=== PATIENT | male | born 1950 | race Caucasian/White ===

== ENCOUNTER 2021-07-15 07:41 | Emergency (ER) | payer MEDICARE, OTHER ==
[~2021-07-15] VITALS: Ht 172.7 cm; Wt 81.7 kg
[2021-07-15 07:48] VITALS: BP 152/93
--- NOTE | 2021-07-15 08:15 | PHYS DOC ---
Past History Past Surgical History: Cholecystectomy, Other Additional Past Surgical Histo: brain surgery for malignant neoplasm Alcohol Use: Occasionally General Adult EDM: Chief Complaint: MECHANICAL FALL HPI: HPI: Patient is a 71-year-old male brought in by EMS from nursing facility after a fall. Patient was standing at the sink when his left leg gave out and he fell causing pain on his right knee. Has been ambulatory since per EMS. Patient has a history of foot drop and normally wears a left leg brace and uses a walker to ambulate. No other complaints. Denies any blood thinner use. Review of Systems: Review of Systems: All other systems within normal limits except for as noted in the HPI Allergies: Allergies: Allergies Coded Allergies Type Severity Reaction Last Updated Verified naproxen Allergy Unknown Nausea 07/15/21 Yes Physical Exam: PE: Constitutional: Well developed, well nourished, no acute distress, non-toxic appearance. [] HENT: Normocephalic, atraumatic, bilateral external ears normal, nose normal. [] Eyes: PERRLA, conjunctiva normal, no discharge. [] Neck: No rigidity, supple, no stridor. [] Cardiovascular: Regular rate and rhythm, brisk cap refill [] Lungs & Thorax: Non labored symmetric respirations, no tachypnea or respiratory distress [] Abdomen: Soft, nondistended. Skin: Warm, dry, no erythema, no rash. [] Back: Unremarkable Extremities: No deformities, range of motion grossly intact, no lower extremity edema. Tenderness of upper anterior knee, no joint effusion. Range of motion intact without difficulty [] Neurologic: Alert and oriented X 3, no focal deficits noted. [] Psychologic: Affect normal, judgement normal, mood normal. [] Current Patient Data: Vital Signs: Vital Signs Date Time Temp Pulse Resp B/P (MAP) Pulse Ox O2 Delivery O2 Flow Rate FiO2 07/15/21 07:48 98.7 85 18 152/93 93 Room Air EKG: EKG: [] Radiology/Procedures: Radiology/Procedures: [address] [address] IMAGING REPORT Signed PATIENT: YAMILETH DONALDSON ACCOUNT: [id number] : 1950 LOCATION: ER AGE: 71 SEX: M EXAM STATUS: PRE ER ORD. PHYSICIAN: SEBASTIAN HORN MD REASON: fall PROCEDURE: KNEE RIGHT 3V XR KNEE 3 VIEWS_RT DATE: 07/15/2021 8:28 AM INDICATION: fall, pain COMPARISON: None. FINDINGS: Bones: There is no evidence of acute fracture or dislocation. Joints: The joint spaces are normal. There is no joint effusion. Miscellaneous: None. IMPRESSION: No evidence of acute fracture. Electronically signed by: Jade Campbell MD (07/15/2021 8:46 AM) [id number] DICTATED AND SIGNED BY: JADE CAMPBELL MD DATE: 07/15/21 0845 CC: SEBASTIAN HORN MD; PCP,NO ~MTH0 0 [] Heart Score: C/O Chest Pain: No Risk Factors: Risk Factors: DM, Current or recent (<one month) smoker, HTN, HLP, family history of CAD, obesity. Risk Scores: Score 0 - 3: 2.5% MACE over next 6 weeks - Discharge Home Score 4 - 6: 20.3% MACE over next 6 weeks - Admit for Clinical Observation Score 7 - 10: 72.7% MACE over next 6 weeks - Early Invasive Strategies Course & Med Decision Making: Course & Med Decision Making Pertinent Labs and Imaging studies reviewed. (See chart for details) [] Dragon Disclaimer: Dragon Disclaimer: This electronic medical record was generated, in whole or in part, using a voice recognition dictation system. Departure Departure: Impression: Primary Impression: Fall Additional Impression: Contusion of knee, right Disposition: 01 HOME / SELF CARE / HOMELESS Condition: STABLE Referrals: PCP,NO (PCP) Patient Instructions: Knee Wraps (Elastic Bandage) and RICE SEBASTIAN HORN MD Jul 15, 2021 08:14
--- NOTE | 2021-07-15 08:48 | RAD ---
XR KNEE 3 VIEWS_RT DATE: 07/15/2021 8:28 AM INDICATION: fall, pain COMPARISON: None. FINDINGS: Bones: There is no evidence of acute fracture or dislocation. Joints: The joint spaces are normal. There is no joint effusion. Miscellaneous: None. IMPRESSION: No evidence of acute fracture. Electronically signed by: Ant Campbell MD (07/15/2021 8:46 AM) [id number]
--- NOTE | 2021-07-15 12:48 | NUR ---
TWO ATTEMPS WERE MADE TO CONTACT PATIENTS RESIDENCE. BOTH TIMES THE PHONE RANG AND WAS NEVER ANSWERED. I CALLED EMS TO TRANSPORT PATIENT HOME.
== END 2021-07-15 09:32 | disposition home or self-care (01) ==
LOC: EDBD 07:41 → ER 07:41
DX: S80.01XA Contusion of right knee, initial encounter (principal); Z88.8 Allergy status to other drugs, medicaments and biological substances; W18.39XA Other fall on same level, initial encounter; Y93.89 Activity, other specified; Y92.89 Other specified places as the place of occurrence of the external cause; Y99.8 Other external cause status
CPT/HCPCS: 29505; 73562; 99284

== ENCOUNTER 2021-07-24 20:56 | Emergency (ER) | payer MEDICARE, OTHER ==
[~2021-07-24] VITALS: Ht 172.7 cm; Wt 83.2 kg
[2021-07-24] MEDS: IOHEXOL 350 MG/ML 100 ML VIAL. IV ONE (21:15)
[2021-07-24 21:19] LABS: BASO # 0.1 x10^3/uL (0.0-0.2); BASO % 1 % (0-3); EOS # 0.1 x10^3/uL (0.0-0.7); EOS % 1 % (0-3); HEMATOCRIT 45.1 % (39.0-53.0); HEMOGLOBIN 14.9 g/dL (13.0-17.5); LYMPH # 1.2 x10^3/uL (1.0-4.8); LYMPH % 10 % (24-48); MEAN CORPUSCULAR HEMOGLOBIN 31 pg (25-35); MEAN CORPUSCULAR HGB CONC 33 g/dL (31-37); MEAN CORPUSCULAR VOLUME 93 fL (79-100); MONO # 0.8 x10^3/uL (0.0-1.1); MONO % 7 % (0-9); NEUT # 9.4 x10^3uL (1.8-7.7); NEUT % 81 % (31-73); PLATELET COUNT 228 x10^3/uL (140-400); RED BLOOD COUNT 4.82 x10^6/uL (4.30-5.70); RED CELL DISTRIBUTION WIDTH 13.7 % (11.5-14.5); WHITE BLOOD COUNT 11.6 x10^3/uL (4.0-11.0)
--- NOTE | 2021-07-24 21:19 | RAD ---
CT HEAD INDICATION: Reason: Weakness, lethargic, change in mental status HX:Brain tumor w/norberto / Spl. Instruct ions: / History: COMPARISON: None Available. Exposure: One or more of the following individualized dose reduction techniques were utilized for thi s examination: 1. Automated exposure control 2. Adjustment of the mA and/or kV according to patient size 3. Use of iterative reconstruction technique TECHNIQUE: 5 mm contiguous axial images were obtained from the skull base to the vertex in both bone and soft tissue algorithm. FINDINGS: There is mass effect with moderate edema in the right frontal lobe with 8 mm [id number] midline sh ift there is effacement of the anterior portion of the right lateral ventricle with some mass effect on the third ventricle. The fourth ventricle is patent. Changes of right craniotomy identified. There is a 2.4 x 1.9 cm hypodensity could be cystic mass or resection cavity in the right frontal lobe. Th ere is suspicion of tiny subdural bleed possibly subacute in the subdural region right frontal lobe, best visualized on series 2 image 21. IMPRESSION: 2.4 cm hypodensity could be cystic mass or resection cavity in the right frontal lobe. There is mass effect with edema in the right frontal lobe with 8 mm khmw-jx-[id number] midline shift. There is effacemen t of the anterior portion of the right lateral ventricle with some mass effect on the third ventricle . There is suspicion of tiny subdural bleed possibly subacute in the subdural region right frontal lo be (difficult to evaluate without comparison). FOR INTERNAL CODING PURPOSES Critical result: Findings discussed with ER physician at 07/24/2021 9:10 PM. RESULT CODE: (C) Electronically signed by: Narendra Mancilla MD (07/24/2021 9:17 PM) [id number]
[2021-07-24 21:27] LABS: CALCIUM 9.2 mg/dL (8.5-10.1); CREATININE 0.8 mg/dL (0.7-1.3); GFR 95.6; POTASSIUM 4.1 mmol/L (3.5-5.1)
--- NOTE | 2021-07-24 21:28 | PHYS DOC ---
Past History Past Surgical History: Cholecystectomy, Other Additional Past Surgical Histo: brain surgery for malignant neoplasm (AUGUSTIN CLOUD DO) Alcohol Use: Occasionally (AUGUSTIN CLOUD DO) General Adult EDM: Chief Complaint: NEURO SYMPTOMS/DEFICITS HPI: HPI: 71-year-old male presents via EMS as a code stroke. The patient is unresponsive and unable to provide any history. The entire HPI is from EMS and care facility reports. The patient was at a local care facility for rehab after treatment of a brain tumor. He was reported to be at baseline which is talking and able to stand and pivot. He can move all 4 extremities. He is normally alert and oriented. He was last known well at 8 PM. When the DIGITAL WATCH ASSEMBLER went into check on the patient around 815 the patient was unresponsive. He was able to nod his head for yes and no for EMS. He was able to say a few words but had total left side loss of function. During transport, the patient became less responsive and was unable to answer any questions or communicate in any way. His vitals were stable. He is moving his right hand and foot but nothing on the left side. (AUGUSTIN CLOUD DO) Review of Systems: Review of Systems: Unable to assess due to patient being unresponsive. (AUGUSTIN CLOUD DO) Current Medications: Current Meds: Current Medications Medications (Trade) Dose Ordered Sig/Kristen Start Time Stop Time Status Last Admin Dose Admin Iohexol (Omnipaque 350 Mg/ml) 100 ml 1X ONCE 07/24/21 21:15 07/24/21 21:16 (AUGUSTIN CLOUD DO) Allergies: Allergies: Allergies Coded Allergies Type Severity Reaction Last Updated Verified naproxen Allergy Unknown Nausea 07/15/21 Yes (AUGUSTIN CLOUD DO) Physical Exam: PE: Constitutional: Well developed, well nourished, severe acute distress. [] HENT: Normocephalic, atraumatic, bilateral external ears normal, oropharynx dry, no oral exudates, nose normal. [] Eyes: 2 mm pupils bilaterally, eye deviation to the right. [] Neck: No obvious signs of trauma [] Cardiovascular: Heart rate regular rhythm, no murmur [] Lungs & Thorax: Bilateral breath sounds clear to auscultation [] Abdomen: soft, no tenderness, no masses, no pulsatile masses. [] Skin: Warm, dry, no erythema, no rash. [] Back: No signs of trauma [] Extremities: No cyanosis, no clubbing. Moving right hand and right foot. [] Neurologic: Responsive to pain, no movement of left upper and lower extremity. See NIH stroke scale. [] Psychologic: Unable to assess [] (AUGUSTIN CLOUD DO) Current Patient Data: Vital Signs: Vital Signs Date Time Temp Pulse Resp B/P (MAP) Pulse Ox O2 Delivery O2 Flow Rate FiO2 07/24/21 21:08 98.5 80 12 125/75 (92) 95 Room Air (AUGUSTIN CLOUD DO) EKG: EKG: [] (AUGUSTIN CLOUD DO) Radiology/Procedures: Radiology/Procedures: [] Impressions: CT HEAD INDICATION: Reason: Weakness, lethargic, change in mental status HX:Brain tumor w/norberto / Spl. Instructions: / History: COMPARISON: None Available. Exposure: One or more of the following individualized dose reduction techniques were utilized for this examination: 1. Automated exposure control 2. Adjustment of the mA and/or kV according to patient size 3. Use of iterative reconstruction technique TECHNIQUE: 5 mm contiguous axial images were obtained from the skull base to the vertex in both bone and soft tissue algorithm. FINDINGS: There is mass effect with moderate edema in the right frontal lobe with 8 mm uevs-oi-wvent midline shift there is effacement of the anterior portion of the right lateral ventricle with some mass effect on the third ventricle. The fourth ventricle is patent. Changes of right craniotomy identified. There is a 2.4 x 1.9 cm hypodensity could be cystic mass or resection cavity in the right frontal lobe. There is suspicion of tiny subdural bleed possibly subacute in the subdural region right frontal lobe, best visualized on series 2 image 21. IMPRESSION: 2.4 cm hypodensity could be cystic mass or resection cavity in the right frontal lobe. There is mass effect with edema in the right frontal lobe with 8 mm srcz-cn-ftdby midline shift. There is effacement of the anterior portion of the right lateral ventricle with some mass effect on the third ventricle. There is suspicion of tiny subdural bleed possibly subacute in the subdural region right frontal lobe (difficult to evaluate without comparison). FOR INTERNAL CODING PURPOSES Critical result: Findings discussed with ER physician at 07/24/2021 9:10 PM. RESULT CODE: (C) Electronically signed by: Narendra Mancilla MD (07/24/2021 9:17 PM) [id number] DICTATED AND SIGNED BY: NARENDRA MANCILLA MD DATE: 07/24/212106 CC: AUGUSTIN CLOUD DO; MEL MACK ~MTH0 0 (AUGUSTIN CLOUD DO) Heart Score: C/O Chest Pain: N/A Risk Factors: Risk Factors: DM, Current or recent (<one month) smoker, HTN, HLP, family history of CAD, obesity. Risk Scores: Score 0 - 3: 2.5% MACE over next 6 weeks - Discharge Home Score 4 - 6: 20.3% MACE over next 6 weeks - Admit for Clinical Observation Score 7 - 10: 72.7% MACE over next 6 weeks - Early Invasive Strategies (AUGUSTIN CLOUD DO) Course & Med Decision Making: Course & Med Decision Making Pertinent Labs and Imaging studies reviewed. (See chart for details) The patient NIH scale is 26. His CT scan shows mass-effect with 8 mm of shift. He also has a small subdural hematoma. The patient's DPOA called the hospital and would like the patient transferred to [facility]. There is nothing further that we can do for him here so we will attempt to expedite his transfer. His vital signs are stable at this time. There were 12 hospitals in [place] on diversion at this time. I spoke with the neurosurgery group associated with the patient at [facility]. Dr. Hough. He believes it is likely that the patient is having a seizure or seizure-like activity. He is advised 1 g of Keppra and 10 mg of Decadron followed by observation for the night. He will work first thing in the morning on getting the patient transferred to a facility where he has privileges. We will inform the family of the situation. [] (AUGUSTIN CLOUD DO) Course & Med Decision Making I received this patient at [address] Cloud. On reassessment the patient remains alert, oriented, with normal speech, moving all extremities. This spoke with neurosurgeon, Dr. Johnston, who reviewed his CT images and is concerned for increasing edema. Dr. Johnston requested the patient be transferred to the [facility] emergency department for an ED to ED transfer. Unfortunately there is no space for direct admit. He states that he spoke with the ED doctors to make them aware. Arranging transport at this time. 0942 (PAN SANTANA MD) Papito Disclaimer: Dragon Disclaimer: This electronic medical record was generated, in whole or in part, using a voice recognition dictation system. (AUGUSTIN CLOUD DO) Departure Departure: Impression: Primary Impression: Brain tumor Additional Impression: Neoplasm of brain causing mass effect on adjacent structures Disposition: 02 SHORT TERM HOSPITAL Condition: GUARDED Referrals: MEL MACK (PCP) NIH Stroke Scale: NIH Stroke Scale Response (Comments) Value Level of Consciousness: 2 Requires stimulation 2 LOC Questions: 2 Answers neither correct 2 LOC Commands: 2 Perform neither task 2 Best Gaze: 1 Partial gaze palsy 1 Visual: 0 No visual loss 0 Facial Palsy: 1 Minor paralysis 1 Motor - Left Arm 4 No movement 4 Motor - Right Arm 2 Some effort 2 Motor - Left Leg 4 No movement 4 Motor: Right Leg 2 Some effort 2 Limb Ataxia: 1 One limb 1 Sensory: 1 Mid to moderate loss 1 Best Language: 2 Severe aphasia 2 Dysathria: 0 Normal 0 Extinction and Inattention: 2 Extinction 2 Total 26 AUGUSTIN CLOUD DO Jul 24, 2021 21:28 PAN SANTANA MD Jul 25, 2021 09:42
[2021-07-24 21:33] LABS: ALBUMIN 3.4 g/dL (3.4-5.0); ALBUMIN/GLOBULIN RATIO 0.9 (1.0-1.7); TOTAL BILIRUBIN 0.6 mg/dL (0.2-1.0); TOTAL PROTEIN 7.2 g/dL (6.4-8.2)
[2021-07-24 21:35] LABS: BACTERIA,URINE 0 /HPF (0-FEW); BILIRUBIN,URINE NEG (NEG); CLARITY,URINE CLEAR; COLOR,URINE YELLOW; GLUCOSE,URINE NEG (NEG); NITRITE,URINE NEG (NEG); RBC,URINE 0 /HPF (0-2); SQUAMOUS EPITHELIAL CELL,UR OCC /LPF; UROBILINOGEN,URINE 0.2 mg/dL (0.2 mg/dL)
[2021-07-24] MEDS ORDERED: IV NORMAL SALINE 100ML 100 ML ONE (22:35)
[2021-07-24] MEDS ORDERED: levETIRAcetam 500 MG/5 ML VIAL IV ONE (22:36)
[2021-07-24] MEDS: DEXAMETHASONE SOD PHOS 10 MG/ML VIAL. IVP ONE (22:43)
--- NOTE | 2021-07-25 00:02 | EKG ---
[facility] [address] [place] [address] Test Date: 2021-07-24 Test Time: 21:14:36 Pat Name: YAMILETH DONALDSON Department: Room: Gender: M Data Typist: VIVIAN : 1950 Requested By: AUGUSTIN CLOUD Order Number: [id number] Reading MD: Measurements Intervals Hoagland Rate: 82 P: 57 DC: 172 QRS: 16 QRSD: 80 T: 28 QT: 440 QTc: 518 Interpretive Statements SINUS RHYTHM PROLONGED QT NO SPECIFIC ECG ABNORMALITIES RI6.02 No previous ECG available for comparison
[2021-07-25] MEDS: ACETAMINOPHEN 325 MG TABLET PO ONE (07:34)
[2021-07-25 09:30] VITALS: BP 147/83
== END 2021-07-25 10:50 | disposition short-term general hospital (02) ==
LOC: ER 20:56
DX: D49.6 Neoplasm of unspecified behavior of brain (principal); Z88.8 Allergy status to other drugs, medicaments and biological substances
CPT/HCPCS: 36415; 70450; 80053; 81001; 82947; 84484; 85025; 85610; 85730; 87086; 93005; 96365; 96375; 99285; J1100; J1953; P9612

== ENCOUNTER 2021-09-06 10:55 | Inpatient (IN) | payer MEDICARE, OTHER ==
[~2021-09-06] VITALS: Ht 175.3 cm; Wt 77.7 kg
--- NOTE | 2021-09-06 11:10 | PHYS DOC ---
Past History Additional Past Medical Histor: Brain tumor (JILL GIBSON APRN) Past Surgical History: Cholecystectomy, Other Additional Past Surgical Histo: brain surgery for malignant neoplasm (JILL GIBSON APRN) Alcohol Use: Occasionally (JILL GIBSON APRN) General Adult EDM: Chief Complaint: WEAKNESS/GENERALIZED HPI: HPI: Patient is a 8-year-old male who presents to the emergency department from a fpc via EMS for reported shortness of breath, generalized weakness, fatigue and diminished lung sounds per the nursing staff. Patient has no current complaints. He denies shortness of breath, chest pain, nausea, vomiting, diarrhea, abdominal pain, urinary complaints. Patient has a history of brain cancer, diabetes type 2, seizures, hypertension, GERD. He is alert and oriented x4. He does not wear oxygen at the fpc but is 90% on room air. (JILL GIBSON APRN) Review of Systems: Review of Systems: Respiratory: See HPI Cardiovascular: See HPI GI: See HPI : See HPI Musculoskeletal: HPI Neurologic: See HPI (JILL GIBSON APRN) Current Medications: Current Meds: Current Medications Medications (Trade) Dose Ordered Sig/Kristen Start Time Stop Time Status Last Admin Dose Admin Sodium Chloride 1,000 ml @ 1,000 mls/hr 1X ONCE 09/06/21 11:15 09/06/21 12:14 UNV (JILL GIBSON APRN) Allergies: Allergies: Allergies Coded Allergies Type Severity Reaction Last Updated Verified naproxen Allergy Unknown Nausea 07/15/21 Yes (JILL GIBSON APRN) Physical Exam: PE: Constitutional: Well developed, well nourished, no acute distress, non-toxic appearance. [] HENT: Normocephalic, atraumatic, bilateral external ears normal, oropharynx moist, no oral exudates, nose normal. [] Eyes: PERRL, EOMI, conjunctiva normal, no discharge. [] Neck: Normal range of motion, no stridor Cardiovascular:Heart rate tachycardic rhythm, no murmur [] Lungs & Thorax: Clear lung sounds to auscultation Abdomen: Bowel sounds normal, soft, no tenderness, no masses, no pulsatile masses. [] Skin: Warm, dry, no erythema, no rash. [] Back: no tenderness Extremities: No tenderness, no cyanosis, no clubbing, ROM intact, no edema. [] Neurologic: Alert and oriented X 3, normal motor function, normal sensory funct ion, no focal deficits noted. [] Psychologic: Affect normal, judgement normal, mood normal. [] (JILL GIBSON APRN) Current Patient Data: Labs: Laboratory Tests Test 09/06/21 10:58 09/06/21 11:18 White Blood Count 9.1 x10^3/uL Red Blood Count 4.54 x10^6/uL Hemoglobin 13.8 g/dL Hematocrit 40.7 % Mean Corpuscular Volume 90 fL Mean Corpuscular Hemoglobin 30 pg Mean Corpuscular Hemoglobin Concent 34 g/dL Red Cell Distribution Width 14.0 % Platelet Count 123 x10^3/uL Neutrophils (%) (Auto) 84 % Lymphocytes (%) (Auto) 9 % Monocytes (%) (Auto) 6 % Eosinophils (%) (Auto) 1 % Basophils (%) (Auto) 0 % Neutrophils # (Auto) 7.7 x10^3uL Lymphocytes # (Auto) 0.8 x10^3/uL Monocytes # (Auto) 0.5 x10^3/uL Eosinophils # (Auto) 0.1 x10^3/uL Basophils # (Auto) 0.0 x10^3/uL Sodium Level 133 mmol/L Potassium Level 3.4 mmol/L Chloride Level 100 mmol/L Carbon Dioxide Level 20 mmol/L Anion Gap 13 Blood Urea Nitrogen 27 mg/dL Creatinine 1.2 mg/dL Estimated GFR (Cockcroft-Gault) 59.9 BUN/Creatinine Ratio 23 Glucose Level 166 mg/dL Lactic Acid Level 1.9 mmol/L Calcium Level 8.6 mg/dL Total Bilirubin 1.2 mg/dL Aspartate Amino Transf (AST/SGOT) 15 U/L Alanine Aminotransferase (ALT/SGPT) 30 U/L Alkaline Phosphatase 74 U/L Total Protein 6.9 g/dL Albumin 2.6 g/dL Albumin/Globulin Ratio 0.6 Influenza Type A (Rapid) Negative Influenza Type B (Rapid) Negative SARS-CoV-2 Antigen (Rapid) Negative Current Medications Medications (Trade) Dose Ordered Sig/Kristen Route PRN Reason Start Time Stop Time Status Last Admin Dose Admin Sodium Chloride 1,000 ml @ 1,000 mls/hr 1X ONCE IV 09/06/21 11:15 09/06/21 12:14 DC 09/06/21 11:15 (JILL GIBSON APRN) EKG: EKG: [] EKG performed by ER staff at 1106 shows sinus tachycardia with a rate of 101, QTc 447, no STEMI read by Dr. Cloud at 1115 (JILL GIBSON APRN) Radiology/Procedures: Radiology/Procedures: []PROCEDURE: PORTABLE CHEST 1V EXAM: Chest, single view. HISTORY: Shortness of air. COMPARISON: None. FINDINGS: A frontal view of the chest is obtained. There is left infrahilar atelectasis or interstitial infiltrate. There is no consolidation, pleural effusion or pneumothorax. The cardiac silhouette is unremarkable. There are calcified granulomas. IMPRESSION: Left infrahilar atelectasis or interstitial infiltrate. Electronically signed by: Radha Ugarte MD (09/06/2021 11:20 AM) [id number] DICTATED AND SIGNED BY: RADHA UGARTE MD DATE: 09/06/211119 CC: JILL GIBSON APRN; NABIL THOMAS ~MTH0 0 (JILL GIBSON APRN) Heart Score: C/O Chest Pain: No Risk Factors: Risk Factors: DM, Current or recent (<one month) smoker, HTN, HLP, family history of CAD, obesity. Risk Scores: Score 0 - 3: 2.5% MACE over next 6 weeks - Discharge Home Score 4 - 6: 20.3% MACE over next 6 weeks - Admit for Clinical Observation Score 7 - 10: 72.7% MACE over next 6 weeks - Early Invasive Strategies (JILL GIBSON APRN) Course & Med Decision Making: Course & Med Decision Making Pertinent Labs and Imaging studies reviewed. (See chart for details) Patient presents to the emergency department for reported shortness of breath, weakness and fatigue according to the nursing staff. Work-up in the ER consisted of blood work, urinalysis, EKG, chest x-ray. Patient treated with IV fluids. Patient's chest x-ray shows left interstitial infiltrate versus left inter-Jacquelyn atelectasis. Patient is noted to have mild elevation in his BUN 27. Potassium 3.4 and this is replaced in the ER. Influenza and Covid testing was negative. Patient was not noted to have a leukocytosis. Urinalysis is pending at this time. Patient is requiring oxygen, he is wearing 2 L via nasal cannula with O2 saturation is 92%. Patient treated with antibiotics for his pneumonia and given potassium supplementation. Due to patient's pneumonia and new oxygen demand as well as weakness reported by [facility] staff I think it would be best with patient IV antibiotics to treat his pneumonia and oxygen therapy. I discussed patient's case with Dr. Watts who agreed to admit the patie nt under his services for pneumonia. Bridge orders placed. Care transferred. (JILL GIBSON APRN) Dragon Disclaimer: Dragon Disclaimer: This electronic medical record was generated, in whole or in part, using a voice recognition dictation system. (JILL GIBSON APRN) Attending Co-Sign The patient was seen and interviewed as well as examined at the bedside. The chart was reviewed. The case was discussed. Agree with the plan of care. (AUGUSTIN CLOUD DO) Departure Departure: Impression: Primary Impression: Pneumonia Qualified Codes: J18.9 - Pneumonia, unspecified organism Disposition: ADMITTED INPATIENT Admitting Physician: Tiffanie Watts (JILL GIBSON APRN) Condition: STABLE Referrals: NABIL THOMAS (PCP) JILL GIBSON APRN Sep 06, 2021 11:10 AUGUSTIN CLOUD DO Sep 06, 2021 17:34
[2021-09-06] MEDS ORDERED: IV NORMAL SALINE 1,000ML 1,000 ML IV ONE ×2 (11:15→13:30)
[2021-09-06 11:23] LABS: BASO % 0 % (0-3); EOS # 0.1 x10^3/uL (0.0-0.7); EOS % 1 % (0-3); HEMATOCRIT 40.7 % (39.0-53.0); HEMOGLOBIN 13.8 g/dL (13.0-17.5); LYMPH # 0.8 x10^3/uL (1.0-4.8); LYMPH % 9 % (24-48); MEAN CORPUSCULAR HEMOGLOBIN 30 pg (25-35); MEAN CORPUSCULAR HGB CONC 34 g/dL (31-37); MEAN CORPUSCULAR VOLUME 90 fL (79-100); MONO # 0.5 x10^3/uL (0.0-1.1); MONO % 6 % (0-9); NEUT # 7.7 x10^3uL (1.8-7.7); NEUT % 84 % (31-73); PLATELET COUNT 123 x10^3/uL (140-400); RED BLOOD COUNT 4.54 x10^6/uL (4.30-5.70); WHITE BLOOD COUNT 9.1 x10^3/uL (4.0-11.0)
--- NOTE | 2021-09-06 11:23 | RAD ---
EXAM: Chest, single view. HISTORY: Shortness of air. COMPARISON: None. FINDINGS: A frontal view of the chest is obtained. There is left infrahilar atelectasis or interstiti al infiltrate. There is no consolidation, pleural effusion or pneumothorax. The cardiac silhouette is unremarkable. There are calcified granulomas. IMPRESSION: Left infrahilar atelectasis or interstitial infiltrate. Electronically signed by: Radha Casillas MD (09/06/2021 11:20 AM) [id number]
[2021-09-06 11:35] LABS: CALCIUM 8.6 mg/dL (8.5-10.1); CREATININE 1.2 mg/dL (0.7-1.3); GFR 59.9; POTASSIUM 3.4 mmol/L (3.5-5.1)
[2021-09-06 11:41] LABS: ALBUMIN 2.6 g/dL (3.4-5.0); ALBUMIN/GLOBULIN RATIO 0.6 (1.0-1.7); TOTAL BILIRUBIN 1.2 mg/dL (0.2-1.0); TOTAL PROTEIN 6.9 g/dL (6.4-8.2)
[2021-09-06 12:12] LABS: INFLUENZA A PATIENT NEGATIVE (NEGATIVE); INFLUENZA B PATIENT NEGATIVE (NEGATIVE)
[2021-09-06] MEDS ORDERED: AZITHROMYCIN 500 MG in IV NORMAL SALINE 250ML 250 ML IV ONE (13:00)
[2021-09-06] MEDS ORDERED: POTASSIUM CHLORIDE 20 MEQ TABLET.ER. PO ONE (13:00)
[2021-09-06] MEDS ORDERED: IV NORMAL SALINE 50ML 50 ML ONE (13:07)
[2021-09-06] MEDS ORDERED: IV NORMAL SALINE 250ML 250 ML ONE (13:07)
[2021-09-06] MEDS ORDERED: cefTRIAXone SODIUM 1 GM VIAL ONE (13:08)
[2021-09-06] MEDS ORDERED: AZITHROMYCIN 500 MG VIAL. IV ONE (13:08)
[2021-09-06 14:16] LABS: BILIRUBIN,URINE NEG (NEG); CLARITY,URINE CLOUDY; COLOR,URINE YELLOW; GLUCOSE,URINE NEG (NEG); NITRITE,URINE NEG (NEG); UROBILINOGEN,URINE 0.2 mg/dL (0.2 mg/dL)
[2021-09-06 14:17] LABS: AMORPHOUS SEDIMENT,UR PRESENT /HPF; BACTERIA,URINE 0 /HPF (0-FEW); RBC,URINE RARE /HPF (0-2); SQUAMOUS EPITHELIAL CELL,UR OCC /LPF
[2021-09-06 15:12] VITALS: BP 94/56
[2021-09-06] MEDS ORDERED: DEXTROSE 50% 25 GM / 50ML DISP.SYRIN. IV PRN (16:30)
[2021-09-06] MEDS: INSULIN LISPRO 300 UNITS/3 ML VIAL. SQ SCH (17:00)
[2021-09-06] MEDS: POTASSIUM CL 40MEQ IN 0.9%NACL 1,000 ML IV SCH (17:11)
--- NOTE | 2021-09-06 18:30 | NUR ---
Nursing Admission note PT came into the floor from the ED by a miguel a with a diagnoses of Pneumonia. general assessments done, some redness around the coccyx area, unable to answer most of the admission questions. part of the history is in the file. Brother who is the power of collections attorney needs information on the any changes. PT able to eat some of the dinner. PT in bed, call light within reach.
--- NOTE | 2021-09-06 18:45 | HP ---
DATE OF SERVICE: 09/06/2021 ADMIT DATE: 09/06/2021 HISTORY OF PRESENT ILLNESS: The patient is a 71-year-old male patient, [place] [facility] [place] to the Emergency Room with generalized weakness as well as shortness of breath and fatigue, and diminishing lung sounds. Per the nursing staff, the patient has no current complaints. He himself denied any shortness of breath, chest pain, nausea or vomiting. He is not wearing any oxygen at the [facility], but he is only 90% on room air. The patient himself is not forthcoming with a lot of information and very slow to respond, although when he answers, he answers appropriately. He was extensively investigated in the Emergency Room and has had lab work showed a white cell count was normal. His chemistry was unremarkable and his chest x-ray showed that the patient has left infrahilar atelectasis or interstitial infiltrate. There is no consolidation, pleural effusion, or pneumothorax. The cardiac silhouette is unremarkable. There are calcified granulomas. The patient was admitted with diagnosis of healthcare-associated pneumonia, was admitted and started on IV antibiotic. He apparently was tested negative for COVID and influenza, and was treated with IV antibiotic and IV fluid afterwards obtaining the appropriate culture. PAST MEDICAL HISTORY: Significant for type 2 diabetes mellitus; major depressive disorder, recurrent; unspecified anxiety disorder; epileptic seizures related to external causes. He has hereditary and idiopathic neuropathy, essential primary hypertension, previous history of pneumonia, gastroesophageal reflux disease, has malignant neoplasm of the frontal lobe. He also has spinal stenosis, low back pain, muscle weakness, rhabdomyolysis, tachycardia, unspecified tachypnea. He also has difficulty walking and cognitive communication disorder. PAST SURGICAL HISTORY: Significant for right frontal lobe tumor resection. I could not get further, any more information from the patient. ALLERGIES: He is allergic to NAPROXEN. MEDICATIONS: He is currently on the following medication: He is on acetaminophen 650 mg every 6 hours, baclofen 10 mg one time a day, Cardizem tablet 120 mg once a day, gabapentin 600 mg twice a day. He is on Imodium 2 mg by mouth every 6 hours. He is on Lantus insulin as per insulin sliding scale. He is on Lantus insulin 12 units at bedtime. He is also on levetiracetam 1000 mg twice a day, Lexapro 10 mg once a day, lisinopril 20 mg once a day, melatonin 0.5 mg at bedtime, metformin 500 mg one tablet twice a day, Norvasc 5 mg once a day, omeprazole 20 mg once a day, Topamax 50 mg twice a day, trazodone 50 mg at bedtime, Zetia 10 mg once a day. He is also on Zofran 8 mg one tablet every 4 hours as needed. FAMILY HISTORY: Unobtainable. SOCIAL HISTORY: [place] [facility] [place] denied any smoking, drinking alcohol and recreational drugs. REVIEW OF SYSTEMS: As per history of present illness. PHYSICAL EXAMINATION: GENERAL: On arrival to the Emergency Room, he looked well and was clearly in no apparent respiratory distress. There is no pallor, jaundice, cyanosis or thyromegaly. No jugular venous distention. No lower limb edema. VITAL SIGNS: His heart rate was 96, blood pressure is 107/61, temperature was 99.2, respiratory rate was 18 and oxygen saturation was 93% on 2 liters of oxygen. HEAD, EYES, EARS, NOSE, AND THROAT: Normocephalic, atraumatic. NECK: Supple. HEART: Showed normal first and second heart sounds, no gallop or murmur. CHEST: Shows central trachea, equal bilateral expansion, air entry, vesicular breath sounds. No crepitation or rhonchi except on the left side posteriorly. ABDOMEN: Distended, soft, nontender. NEUROLOGIC: He is awake, alert, responding appropriately. All his cranial nerves are intact. He moves upper extremities to much good extent than lower extremities; however, I have not tested his gait. According to him, he is able to ambulate; however, according to the [facility] notes that he requires assistance in all activities of daily living. LABORATORY DATA: On arrival showed a white cell count of 9100, hemoglobin 14, hematocrit 41, MCV 90 and platelet count of 123,000 with a manual differential showed 84% polymorphs, 9% lymphocytes and 5% monocytes. His chemistry showed a serum sodium 133, potassium 3.4, chloride 100, bicarbonate 20, anion gap of 13, BUN 27, creatinine 1.2. Estimated GFR was 59 mL per minute. His glucose 166, lactic acid is 1.9, calcium was 8.6. Total bilirubin, AST, ALT, alkaline phosphatase were normal. Troponin was high sensitivity, was 20. Total protein 6.9, albumin was 2.5. His urinalysis was essentially unremarkable and his coronavirus rapid testing was negative. Influenza A and B were negative. Again, his chest x-ray showed the patient has left infrahilar atelectasis or interstitial infiltrate. ASSESSMENT AND PLAN: The patient was admitted with healthcare-associated pneumonia. Plan is to reconcile all his medication, continue with IV ceftriaxone and Zithromax and I will continue with IV fluid in the form of normal saline with potassium chloride and continue with oxygen supplementation and DVT prophylaxis. I would also consult Physical and Occupational Therapy to evaluate him. We will monitor his blood sugar and adjust insulin as needed. BHAVANA/SHWETHA DR: Sade TID: [id number]
[2021-09-06 19:45] VITALS: BP 136/66
[2021-09-06] MEDS: INSULIN GLARGINE SYRINGE. SQ SCH (22:09)
[2021-09-07 00:22] VITALS: BP 126/68
[2021-09-07] MEDS ORDERED: LOPERAMIDE 2 MG/15 ML ORAL SUSP. PO PRN (03:15)
--- NOTE | 2021-09-07 03:58 | EKG ---
[address] [address] Test Date: 2021-09-06 Test Time: 13:42:26 Pat Name: YAMILETH DONALDSON Department: Room: 111 A Gender: M Fruit Packer: TRENA : 1950 Requested By: JILL GIBSON Order Number: [id number] Reading MD: Maged Altman Measurements Intervals [place] Rate: 77 P: 0 DE: 158 QRS: 8 QRSD: 84 T: -17 QT: 380 QTc: 432 Interpretive Statements SINUS RHYTHM T ABNORMALITY IN INFERIOR LEADS Electronically Signed On 09-08-2021 13:30:28 CDT by Maged Altman
[2021-09-07] MEDS ORDERED: LEVE500T21 PO (04:07)
[2021-09-07] MEDS ORDERED: TOPI50TA38 PO (04:07)
[2021-09-07] MEDS ORDERED: LISI20TA18 PO (04:07)
[2021-09-07] MEDS ORDERED: MELA1TAB44 PO (04:07)
[2021-09-07] MEDS ORDERED: LOPE1LIQ7 PO (04:07)
[2021-09-07] MEDS ORDERED: OMEP20CA16 PO (04:07)
[2021-09-07] MEDS ORDERED: BACL10TA PO (04:07)
[2021-09-07] MEDS ORDERED: TRAZ-120 PO (04:07)
[2021-09-07] MEDS ORDERED: GABA-586 PO (04:07)
[2021-09-07] MEDS ORDERED: AMLO5TAB4 PO (04:07)
[2021-09-07] MEDS ORDERED: ONDA4TAB7 PO (04:07)
[2021-09-07] MEDS ORDERED: ESCITALOPRAM OX10 MG PO (04:07)
[2021-09-07] MEDS ORDERED: METF500T16 PO (04:07)
[2021-09-07] MEDS ORDERED: EZET10TA20 PO (04:07)
[2021-09-07] MEDS ORDERED: DILT60TA3 PO (04:07)
[2021-09-07] MEDS ORDERED: ACET325T21 PO (04:07)
[2021-09-07] MEDS ORDERED: ONDANSETRON ODT 4 MG TAB.RAPDIS PO PRN ×2 (04:30→04:45)
[2021-09-07 06:17] VITALS: BP 125/76
[2021-09-07] MEDS: ACETAMINOPHEN 325 MG TABLET PO PRN ×2 (06:27→19:18)
[2021-09-07] MEDS: POTASSIUM CL 40MEQ IN 0.9%NACL 1,000 ML IV SCH ×2 (06:28→20:28)
[2021-09-07 07:21] LABS: ALBUMIN 2.4 g/dL (3.4-5.0); ALBUMIN/GLOBULIN RATIO 0.6 (1.0-1.7); CALCIUM 8.2 mg/dL (8.5-10.1); CREATININE 0.7 mg/dL (0.7-1.3); GFR 111.5; TOTAL BILIRUBIN 1.1 mg/dL (0.2-1.0); TOTAL PROTEIN 6.4 g/dL (6.4-8.2)
[2021-09-07 07:26] LABS: BASO % 0 % (0-3); EOS # 0.1 x10^3/uL (0.0-0.7); EOS % 1 % (0-3); HEMATOCRIT 37.6 % (39.0-53.0); LYMPH # 0.7 x10^3/uL (1.0-4.8); LYMPH % 9 % (24-48); MEAN CORPUSCULAR HEMOGLOBIN 31 pg (25-35); MEAN CORPUSCULAR HGB CONC 34 g/dL (31-37); MEAN CORPUSCULAR VOLUME 89 fL (79-100); MONO # 0.4 x10^3/uL (0.0-1.1); MONO % 6 % (0-9); NEUT # 6.2 x10^3uL (1.8-7.7); NEUT % 84 % (31-73); PLATELET COUNT 109 x10^3/uL (140-400); RED BLOOD COUNT 4.22 x10^6/uL (4.30-5.70); WHITE BLOOD COUNT 7.4 x10^3/uL (4.0-11.0)
[2021-09-07] MEDS: INSULIN LISPRO 300 UNITS/3 ML VIAL. SQ SCH ×3 (07:31→16:52)
[2021-09-07] MEDS: PANTOPRAZOLE 40 MG TABLET. PO SCH (08:26)
[2021-09-07] MEDS: GABAPENTIN 300 MG CAPSULE. PO SCH ×2 (08:26→20:26)
[2021-09-07] MEDS: levETIRAcetam 500 MG TABLET PO SCH ×2 (08:26→20:26)
[2021-09-07] MEDS: CITALOPRAM 20 MG TABLET. PO SCH (08:26)
[2021-09-07] MEDS: TOPIRAMATE 25 MG TABLET. PO SCH ×2 (08:26→20:25)
[2021-09-07] MEDS: metFORMIN 500 MG TABLET PO SCH ×2 (08:26→16:30)
[2021-09-07] MEDS: LACTOBACILLUS RHAMNOSUS GG 1 CAPSULE. PO SCH ×2 (08:27→20:27)
[2021-09-07] MEDS: LISINOPRIL 20 MG TABLET PO SCH (08:27)
[2021-09-07] MEDS: BACLOFEN 10 MG TABLET PO SCH (08:27)
[2021-09-07] MEDS: AZITHROMYCIN 250 MG TABLET. PO SCH (08:27)
[2021-09-07] MEDS: amLODIPine BESYLATE 5 MG TABLET PO SCH (08:27)
[2021-09-07] MEDS: EZETIMIBE 10 MG TABLET PO SCH (08:27)
[2021-09-07 11:03] VITALS: BP 105/73
--- NOTE | 2021-09-07 12:32 | NUR ---
CONSULT CALLED TO DR. WEBB
[2021-09-07 15:24] VITALS: BP 132/72
--- NOTE | 2021-09-07 16:47 | NUR ---
DR. WEBB AND JANAK CONSULTED. PT TO CONTINUE ON IV ABX TX. PT SAT IN THE CHAIR AND RESTED MOST OF THE DAY. Addendum: 09/09/21 at 1335 by TAO HANEY RN TRACEY CONSULTED FOR SHAKING/TREMORS. PT ABLE TO TALK AND ANSWER QUESTIONS ALL SHIFT. UP AND EATING IN THE CHAIR. ABLE TO STAND TO USE THE COMMODE.
[2021-09-07 19:10] VITALS: BP 133/70
[2021-09-07] MEDS: INSULIN GLARGINE SYRINGE. SQ SCH (20:24)
[2021-09-07] MEDS: MELATONIN 3 MG TABLET PO SCH (20:25)
[2021-09-07] MEDS: traZODone 50 MG TABLET. PO SCH (20:27)
[2021-09-07] MEDS: PRIMIDONE 50 MG TABLET PO SCH (20:27)
--- NOTE | 2021-09-07 20:45 | PN ---
DATE: 09/07/2021 SUBJECTIVE: The patient is sitting in his chair, eating his lunch comfortably, in no respiratory distress; however, he is extremely shaky and anxious. PHYSICAL EXAMINATION: GENERAL: When I examined him, he looked well. There was no pallor, jaundice, cyanosis or thyromegaly. No jugular venous distention. No limb edema. VITAL SIGNS: His heart rate was 97, blood pressure is 105/73, temperature was 98.2, respiratory rate 20, and oxygen saturation was 95% on room air. HEAD, EYES, EARS, NOSE AND THROAT: Normocephalic, atraumatic. NECK: Supple. HEART: Showed normal first and second heart sounds, no gallop, rub or murmur. CHEST: Showed central trachea. Equal bilateral chest expansion; air entry, vesicular breath sounds with crepitation mostly in the left side posteriorly. I could not appreciate any rhonchi. ABDOMEN: Distended, soft, nontender. NEUROLOGIC: He is awake, alert, responding appropriately. All his cranial nerves intact. He moves extremities without difficulty. He is extremely anxious and tremulous. His intake over the last 24 hours was 3540, no output was recorded. LABORATORY DATA: This morning showed a white cell count 7400, hemoglobin 13, hematocrit 37, MCV 89 and platelet count of 109,000. Serum sodium 132, potassium 4, chloride 102, bicarbonate 21, anion gap of 9, BUN 12, creatinine 0.7. Estimated GFR was 111 mL per minute. His glucose 146, calcium was 8.2. Total bilirubin slightly elevated. AST and alkaline phosphatase were normal. Total protein 6.4, albumin was 2.4. ASSESSMENT: 1. Acute hypoxic respiratory failure. 2. Healthcare-associated pneumonia. The patient has multiple other medical problems including: A. Type 2 diabetes mellitus. B. Major depressive disorder, recurrent. C. Unspecified anxiety disorder. E. Epileptic seizures related. F. Hereditary antibiotic neuropathy. G. Essential primary hypertension. H. Gastroesophageal reflux disease. I. Malignant neoplasm, frontal lobe, status post resection. PLAN: My plan is to continue with IV antibiotic in the form of ceftriaxone and Zithromax. Continue with all his antihypertensive medications and Keppra for seizure disorder as well as topiramate. AMElizabeth/EKT DR: REILLY/baljit TID: [id number]
--- NOTE | 2021-09-07 22:25 | CONS ---
DATE OF CONSULTATION: 09/07/2021 NEUROLOGY CONSULT REFERRING PHYSICIAN: Dr. Watts. REASON FOR CONSULTATION: Severe tremor of the upper and lower extremities. HISTORY OF PRESENT ILLNESS: This is a 71-year-old right-handed male who was admitted through Emergency Room on 09/06/2021 on account of generalized weakness, fatigue, and generalized tremor of the upper and lower extremities. A chest x-ray revealed evidence of atelectasis or interstitial infiltrate. A Neuro consult was requested, because the patient has been having severe tremor of the upper and lower extremities for approximately two months after he underwent a surgical removal of the right frontal brain tumor. The tremor appears to be aggravated by anxiety as the patient has longstanding history of depressions and anxiety disorders. He denies headaches, visual disturbances, nausea, vomiting, chest pain, shortness of breath or palpitation. The patient was tested negative for COVID. PAST MEDICAL HISTORY: Significant for diabetes mellitus type 2, epileptic seizure, probably related to frontal tumor. History of peripheral neuropathy, pneumonia, gastroesophageal reflux disease, malignant neoplasm of the frontal lobe, chronic lower back pain due to degenerative disk disease and spinal stenosis, rhabdomyolysis, difficulty walking and communicating. PAST SURGICAL HISTORY: Positive for resection of a malignant brain tumor of the right frontal region performed two months ago at [facility]. FAMILY HISTORY: Noncontributory. SOCIAL HISTORY: The patient is a resident of a [facility]. He denies smoking, alcohol drinking or illicit drug use. CURRENT HOME MEDICATIONS: Tylenol, amlodipine, baclofen, citalopram, diltiazem, Zetia, gabapentin, insulin Lantus and insulin Humalog, levetiracetam, lisinopril, Imodium p.r.n., melatonin, metformin, trazodone, and topiramate. ALLERGIES: NAPROXEN. REVIEW OF SYSTEMS: Ten-point review of system was performed as mentioned above in history of present illness. PHYSICAL EXAMINATION: GENERAL: Well-developed, well-nourished male in no acute distress. He weighs 79.1 kilos. VITAL SIGNS: Blood pressure 105/73, respiratory rate 20, pulse is 97 and regular, temperature 98.2, oxygen saturation 94% on room air. HEENT: Normocephalic. Status post right frontal craniotomy. Otherwise, unremarkable. NECK: Supple, negative for carotid bruit, lymphadenopathy or thyromegaly. LUNGS: With diminished breath sounds. No wheezing or rales. CARDIAC: Regular rate and rhythm, normal S1, S2. ABDOMEN: Soft. Bowel sounds positive. EXTREMITIES: Negative for cyanosis, clubbing or edema. NEUROLOGIC: Mental status: The patient is alert and oriented to time and place. The speech is fluent. There is no language dysfunction. Memory, judgment and abstracting thinking are fair. The patient denies hallucination or delusion. Cranial nerves: Visual woods are full. The pupils are reactive to light and accommodation. The extraocular movements are intact. There is no nystagmus. There is no facial motor or sensory deficit. Hearing appeared to be intact. The palate is elevated symmetrically. Sternocleidomastoid muscles are powerful bilaterally. The patient shrugs his shoulders symmetrically, protrudes his tongue in the midline without fasciculation or atrophy. Motor Examination: No focal muscle bulk wasting. The tone is normal. The strength is 4/5 throughout. The patient has severe resting, postural, and kinetic tremors of the upper extremities. Resting tremor, we also noted in the lower extremities as well. Sensory examination revealed diminished pinprick and light touch senses in patchy distributions in both distal lower extremities. Deep tendon reflexes were symmetric and hypoactive with absent Achilles responses. Gait not tested. LABORATORY DATA: CBC revealed blood cells of 7.4 thousand, hemoglobin 13, hematocrit 37.6, platelet count 109 thousand. Chemistry revealed sodium of 132, potassium 4, chloride 102, CO2 of 21, BUN 12, creatinine 0.7, glucose 146, calcium 8.2. Liver enzymes not elevated. Urinalysis negative for urinary tract infection. COVID PCR and rapid negative as well as influenza A and B. IMPRESSION: 1. Severe postural, resting, and kinetic tremors of the upper and lower extremities aggravated by anxiety, noticeable after resection of a right frontal brain tumor. 2. Multiple medical problems include diabetes mellitus, hypertension, hyperlipidemia, GERD, severe anxiety disorders, depressions, chronic low back pain secondary to degenerative disk disease and spinal stenosis. 3. History of seizure disorder, probably induced by frontal lobe neoplasm. 4. Left lobe pneumonia. RECOMMENDATIONS: 1. Continue with current care initiated by Dr. Watts. 2. Continue with current home medications. 3. We will add primidone at 50 mg at bedtime and will increase it gradually as tolerated to control the tremor. 4. Physical therapy as tolerated. CARMELO/JULI/AZAM DR: Ivan TID: [id number]
[2021-09-07 22:49] VITALS: BP 134/71
[2021-09-08 05:34] VITALS: BP 151/85
[2021-09-08] MEDS: ACETAMINOPHEN 325 MG TABLET PO PRN (05:52)
[2021-09-08 06:39] LABS: HEMATOCRIT 37.1 % (39.0-53.0); HEMOGLOBIN 12.8 g/dL (13.0-17.5); RED BLOOD COUNT 4.2 x10^6/uL (4.30-5.70); RED CELL DISTRIBUTION WIDTH 14.2 % (11.5-14.5); WHITE BLOOD COUNT 7.8 x10^3/uL (4.0-11.0)
[2021-09-08 07:14] LABS: ALBUMIN 2.5 g/dL (3.4-5.0); ALBUMIN/GLOBULIN RATIO 0.6 (1.0-1.7); CALCIUM 8.4 mg/dL (8.5-10.1); CREATININE 0.9 mg/dL (0.7-1.3); GFR 83.4; POTASSIUM 4.3 mmol/L (3.5-5.1); TOTAL BILIRUBIN 0.8 mg/dL (0.2-1.0); TOTAL PROTEIN 6.8 g/dL (6.4-8.2)
[2021-09-08] MEDS: INSULIN LISPRO 300 UNITS/3 ML VIAL. SQ SCH ×3 (07:58→16:30)
[2021-09-08] MEDS: LACTOBACILLUS RHAMNOSUS GG 1 CAPSULE. PO SCH ×2 (08:20→22:10)
[2021-09-08] MEDS: PANTOPRAZOLE 40 MG TABLET. PO SCH (08:21)
[2021-09-08] MEDS: LISINOPRIL 20 MG TABLET PO SCH (08:21)
[2021-09-08] MEDS: EZETIMIBE 10 MG TABLET PO SCH (08:21)
[2021-09-08] MEDS: metFORMIN 500 MG TABLET PO SCH ×2 (08:21→17:00)
[2021-09-08] MEDS: AZITHROMYCIN 250 MG TABLET. PO SCH (08:21)
[2021-09-08] MEDS: CITALOPRAM 20 MG TABLET. PO SCH (08:21)
[2021-09-08] MEDS: GABAPENTIN 300 MG CAPSULE. PO SCH ×2 (08:22→22:10)
[2021-09-08] MEDS: BACLOFEN 10 MG TABLET PO SCH (08:22)
[2021-09-08] MEDS: amLODIPine BESYLATE 5 MG TABLET PO SCH (08:22)
[2021-09-08] MEDS: levETIRAcetam 500 MG TABLET PO SCH ×2 (08:22→22:10)
[2021-09-08] MEDS: TOPIRAMATE 25 MG TABLET. PO SCH ×2 (08:22→22:10)
[2021-09-08] MEDS: PRIMIDONE 50 MG TABLET PO SCH ×2 (08:23→22:11)
--- NOTE | 2021-09-08 08:55 | NUR ---
PT SPIT OUT SOME OF HIS MEDS. UNABLE TO ASSESS WHICH ONES HE SPIT OUT. Addendum: 09/09/21 at 1338 by TAO HANEY RN PT OPENED EYES TO STERNAL RUB AND NAME, BUT UNABLE TO STAY AWAKE FOR LONG. PT ABLE TO ROLL IN BED TO BE CHANGED AND REPOSITIONED. PT ABLE TO EAT A SMALL AMOUNT OF HIS BREAKFAST, HOLDING HIS OWN SAUSAGE AND FEEDING HIMSELF.
[2021-09-08] MEDS: POTASSIUM CL 40MEQ IN 0.9%NACL 1,000 ML IV SCH ×2 (09:33→23:30)
[2021-09-08 10:40] VITALS: BP 122/72
--- NOTE | 2021-09-08 13:26 | PN ---
DATE: 09/08/2021 SUBJECTIVE: The patient is resting, slightly propped up in bed, in no apparent distress. He is very lethargic, but arousable, opens eyes, tracks and responds appropriately. He continued to have these abnormal movements in his extremities that did not seem to be like seizure-like activity. The only medication that he was started on yesterday was primidone by Dr. Stokes and he took it last night and this morning. PHYSICAL EXAMINATION: GENERAL: When I examined him, he looked well and was clearly in no apparent respiratory distress. There was no pallor, jaundice, cyanosis or thyromegaly. No jugular venous distention. No limb edema. VITAL SIGNS: His heart rate was 102, blood pressure was 151/85, temperature was 100.3, respiratory rate was 18, and oxygen saturation was 94%. HEAD, EYES, EARS, NOSE, AND THROAT: Showed normocephalic, atraumatic. NECK: Supple. HEART: Normal first and second heart sounds, no gallop or murmur. CHEST: Clear to auscultation, no crepitation or rhonchi. ABDOMEN: Distended, soft, nontender. NEUROLOGIC: He was very lethargic, but arousable. All other cranial nerves intact. He moves extremities without difficulty. His intake and output was incompletely recorded. LABORATORY DATA: This morning showed a white cell count of 7800, hemoglobin 13, hematocrit 37, MCV 89, and platelet count of 117,000. His chemistry showed a serum sodium of 132, potassium 4.3, chloride 101, bicarbonate 24, anion gap of 7, BUN 10, creatinine 0.9. Estimated GFR was 83 mL per minute. His glucose 145, calcium was 8.4. Total bilirubin, AST, ALT, alkaline phosphatase were normal. Total protein 6.8, albumin was 2.5. ASSESSMENT: 1. Acute hypoxic respiratory failure. 2. Healthcare-associated pneumonia. 3. The patient has multiple other medical problems including: A. Type 2 diabetes mellitus, seems to be reasonably controlled. B. Major depressive disorder, recurrent. C. Unspecified anxiety disorder. D. Epileptic seizures. E. Hereditary neuropathy. F. Essential primary hypertension. G. Gastroesophageal reflux disease. H. Malignant neoplasm of the right frontal lobe, status post resection I. Benign essential tremors. PLAN: To continue treatment with IV antibiotic in the form of ceftriaxone and Zithromax. Continue with all his other medications including Keppra and topiramate as well as primidone as prescribed by the neurologist. GALINDO DR: Sade TID: [id number]
[2021-09-08 15:12] VITALS: BP 121/69
--- NOTE | 2021-09-08 15:15 | NUR ---
DR. WEBB CHANGED PRIMIDONE TO QHS INSTEAD OF BID, D/T PT BEING SEDATED. PT BACK ON 3L OF OXYGEN. PT NON-VERBAL TODAY. PT SLEPT MOST OF THE DAY AND WOULD OCCASIONALLY OPEN EYES. Addendum: 09/08/21 at 1707 by TAO HANEY RN SPOKE WITH PT BROTHER. BROTHER STATES PT WAS NOT HAVING TREMORS/SHAKING WHEN HE SAW HIM ABOUT 10 DAYS AGO. BROTHER IS CONCERNED THAT THERE IS "A LACK OF COORDINATION" BETWEEN MEDICALODGE AND PT ONCOLOGIST, ETC. FAR PTS MEDICATIONS FOR HIS MENTAL HEALTH.
--- NOTE | 2021-09-08 17:08 | NUR ---
EVENING DOSE OF METFORMIN HELD. PT ASLEEP AND REFUSING TO OPEN HIS MOUTH.
[2021-09-08 19:51] VITALS: BP 121/77
[2021-09-08] MEDS: MELATONIN 3 MG TABLET PO SCH (22:09)
[2021-09-08] MEDS: traZODone 50 MG TABLET. PO SCH (22:10)
[2021-09-08] MEDS: INSULIN GLARGINE SYRINGE. SQ SCH (22:11)
--- NOTE | 2021-09-08 22:19 | PN ---
SUBJECTIVE: The patient has been sedated since morning. He opens his eyes to command. He denies any new medical or neurological complaints. OBJECTIVE: GENERAL: A well-developed, well-nourished male in no acute distress. VITAL SIGNS: Blood pressure 122/72, respiratory rate 18, pulse is 85 and regular, oxygen saturation is 95% on 3 liters per nasal cannula and temperature is 97.8. HEENT: Normocephalic, atraumatic, otherwise unremarkable. NECK: Supple, negative for carotid bruit, lymphadenopathy or thyromegaly. LUNGS: Diminished breath sounds. CARDIOVASCULAR: Regular rate and rhythm, normal S1, S2. ABDOMEN: Soft. Bowel sounds positive. EXTREMITIES: Negative for cyanosis, clubbing or pedal edema. NEUROLOGIC: Mental status: The patient is drowsy, but arousable, opens his eyes to commands. He follows one-step commands. The patient, due to drowsiness, is not communicative. Cranial nerves are grossly intact. Motor examination revealed no focal muscle bulk was seen. The strength is 4/5 throughout. The tremor has been less severe. Sensory examination revealed diminished pinprick and light touch senses in patchy distributions in distal lower extremities. Deep tendon reflexes were symmetric and hypoactive with absent Achilles responses. Gait not tested. IMPRESSION: 1. Resting and kinetic and postural tremors of the upper and lower extremities with some improvement on primidone. 2. Left lobe pneumonia. 3. Multiple medical problems include hypertension, hyperlipidemia, diabetes mellitus, severe anxiety, depression disorder, chronic lower back pain and history of seizure disorder, status post right frontal craniotomy. RECOMMENDATIONS: 1. Continue with current management initiated by Dr. Watts. 2. We will hold primidone and continue with primidone 50 mg at bedtime and adjust medication accordingly. LEONEL KIRAN: Ivan TID: [id number]
--- NOTE | 2021-09-08 22:43 | CONS ---
DATE OF CONSULTATION: 09/07/2021 PSYCHIATRIC CONSULTATION This is a late entry, date of service 09/07/2021, covers elements not covered in my initial note. I met with the patient on the evening of 09/07/2021, discussed with nursing staff, reviewed the chart. IDENTIFYING DATA: The patient is a 71-year-old male seen in bed #111, 1 [facility] for a psychiatric consult requested by Dr. Watts on account of the patient's severe anxiety with tremors and a history of major depressive disorder, seizure disorder, essential hypertension, type 2 diabetes mellitus, malignant neoplasm of the frontal lobe and cognitive communication disorder. I have been asked to make recommendations for any psychiatric interventions for his anxiety. CHIEF COMPLAINT: "Yes." The patient responded almost monosyllabically to most of my questions including the above response to if there were any psychosocial events worsening his anxiety. He was unable to articulate anything specific beyond that. HISTORY OF PRESENT ILLNESS: The patient is a resident at [facility] brought to the Emergency Room with weakness, shortness of breath and fatigue, diminished lung sounds. O2 sats 90% on room air. He has been very slow to respond to questions, but according to Dr. Watts's notes when he does respond, it is appropriate. He has been admitted with healthcare-associated pneumonia, started on IV antibiotics and was negative for COVID and influenza. PAST PSYCHIATRIC HISTORY: Positive for depression and the diagnosis mentioned above. Additionally, he has a history of GERD, spinal stenosis, low back pain, muscle weakness, rhabdomyolysis, tachypnea, and tachycardia. PAST SURGICAL HISTORY: Frontal lobe tumor resection from the brain. ALLERGIES: NAPROSYN. FAMILY HISTORY: Noncontributory. SOCIAL HISTORY: No alcohol or drug abuse. MENTAL STATUS EXAMINATION: The patient is awake, alert, oriented to himself, at times situation, but it is very difficult for me to assess this given Dr. Watts's notes that he seemed to have appropriate responses. He was unable to respond to what year it is or who the president is, but this could be because he was informed I was a psychiatrist. No suicidal or homicidal ideation. He does have some overt hand tremors, but it is unclear whether this is related to his neurological disorder and frontal lobe tumor resection and seizure disorder. Nevertheless, he does complain of being anxious. No suicidal or homicidal ideation. Mood and affect do appear depressed. LABORATORY DATA: Reviewed. IMPRESSION: Major depressive disorder, recurrent; anxiety disorder, unspecified. Rest as above. RECOMMENDATION: From a psychiatric standpoint, he is on gabapentin 600 mg twice a day for his pain, which might help his anxiety as well. Keppra for his seizures, Lexapro 10 mg a day, melatonin at bedtime, trazodone at bedtime. Given his ongoing anxiety and mood symptoms, I would suggest increasing Lexapro to 15 mg a day and adding BuSpar 5 mg twice a day to be increased gradually to a maximum of 40 mg a day. I leave this as a suggestion for Dr. Watts to consider. Reviewed drug interactions, risk/benefit ratio. Dr. Watts, thank you for the opportunity to participate in your patient's care. We will follow with you. SADAF DR: Mayra TID: [id number]
[2021-09-09 05:43] VITALS: BP 114/75
[2021-09-09] MEDS: INSULIN LISPRO 300 UNITS/3 ML VIAL. SQ SCH ×3 (08:00→16:53)
[2021-09-09] MEDS: PANTOPRAZOLE 40 MG TABLET. PO SCH (08:38)
[2021-09-09] MEDS: LISINOPRIL 20 MG TABLET PO SCH (08:38)
[2021-09-09] MEDS: AZITHROMYCIN 250 MG TABLET. PO SCH (08:39)
[2021-09-09] MEDS: GABAPENTIN 300 MG CAPSULE. PO SCH ×2 (08:39→21:00)
[2021-09-09] MEDS: levETIRAcetam 500 MG TABLET PO SCH (08:39)
[2021-09-09] MEDS: CITALOPRAM 20 MG TABLET. PO SCH (08:39)
[2021-09-09] MEDS: TOPIRAMATE 25 MG TABLET. PO SCH ×2 (08:39→21:16)
[2021-09-09] MEDS: metFORMIN 500 MG TABLET PO SCH ×2 (08:39→16:53)
[2021-09-09] MEDS: LACTOBACILLUS RHAMNOSUS GG 1 CAPSULE. PO SCH ×2 (08:39→21:00)
[2021-09-09] MEDS: BACLOFEN 10 MG TABLET PO SCH (08:39)
[2021-09-09] MEDS: EZETIMIBE 10 MG TABLET PO SCH (08:40)
[2021-09-09] MEDS: amLODIPine BESYLATE 5 MG TABLET PO SCH (08:40)
--- NOTE | 2021-09-09 09:00 | PDOC ---
Exam Note: Samuel Note: Late entry for 09/07/2021. Please also refer to the separate dictated note~for this date of service dictated separately.~Patient seen individually. Discussed the patient with Nursing staff reviewed the chart.~Reviewed interim history and current functioning. Reviewed vital signs,~Labs/ Radiology~and current medic ations noted below. Continue current treatment with the changes noted in the dictated addendum note Assessment: Vital Signs/I&O: Vital Signs Date Time Temp Pulse Resp B/P (MAP) Pulse Ox O2 Delivery O2 Flow Rate FiO2 09/09/21 08:40 89 114/75 09/09/21 05:43 98.1 18 91 Nasal Cannula 3.0 I & O 0 09/08/21 09/08/21 09/09/21 15:00 23:00 07:00 Intake Total 120 ml 240 ml 1050 ml Balance 120 ml 240 ml 1050 ml Labs: Laboratory Tests Test 09/08/21 11:37 09/08/21 16:27 09/08/21 20:10 09/09/21 08:04 Glucose (Fingerstick) 134 mg/dL (70-99) H 108 mg/dL (70-99) H 144 mg/dL (70-99) H 146 mg/dL (70-99) H Current Medications: Meds: Laboratory Tests Test 09/08/21 11:37 09/08/21 16:27 09/08/21 20:10 09/09/21 08:04 Glucose (Fingerstick) 134 mg/dL 108 mg/dL 144 mg/dL 146 mg/dL Current Medications Medications (Trade) Dose Ordered Sig/Kristen Route PRN Reason Start Time Stop Time Status Last Admin Dose Admin Sodium Chloride 1,000 ml @ 1,000 mls/hr 1X ONCE IV 09/06/21 11:15 09/06/21 12:14 DC 09/06/21 11:15 Ceftriaxone Sodium 1 gm/ Sodium Chloride 50 ml @ 100 mls/hr 1X ONCE IV 09/06/21 13:00 09/06/21 13:29 DC 09/06/21 13:14 Azithromycin 500 mg/Sodium Chloride 250 ml @ 250 mls/hr 1X ONCE IV 09/06/21 13:00 09/06/21 13:59 DC 09/06/21 13:15 Potassium Chloride (Klor-Con) 20 meq 1X ONCE PO 09/06/21 13:00 09/06/21 13:01 DC 09/06/21 13:14 Sodium Chloride 250 ml @ As Directed STK-MED ONCE .ROUTE 09/06/21 13:07 09/06/21 13:08 DC Sodium Chloride 50 ml @ As Directed STK-MED ONCE .ROUTE 09/06/21 13:07 09/06/21 13:08 DC Azithromycin (Zithromax) 500 mg STK-MED ONCE IV 09/06/21 13:08 09/06/21 13:08 DC Ceftriaxone Sodium (Rocephin) 1 gm STK-MED ONCE .ROUTE 09/06/21 13:08 09/06/21 13:08 DC Sodium Chloride 1,000 ml @ 1,000 mls/hr 1X ONCE IV 09/06/21 13:30 09/06/21 14:29 DC 09/06/21 13:30 Ceftriaxone Sodium 1 gm/ Sodium Chloride 50 ml @ 100 mls/hr Q24H IV 09/07/21 16:30 09/08/21 15:56 Azithromycin (Zithromax) 250 mg DAILY PO 09/07/21 09:00 09/09/21 08:39 Insulin Human Lispro (HumaLOG) 0-7 UNITS TIDWMEALS SQ 09/06/21 17:00 09/07/21 12:04 Dextrose (Dextrose 50%-Water Syringe) 12.5 gm PRN Q15MIN PRN IV SEE COMMENTS 09/06/21 16:30 Insulin Glargine (Lantus Syringe) 12 unit QHS SQ 09/06/21 21:00 09/08/21 22:11 Potassium Chloride/Sodium Chloride 1,000 ml @ 75 mls/hr [id number] IV 09/06/21 16:30 09/08/21 23:30 Acetaminophen (Tylenol) 650 mg PRN Q6HRS PRN PO pain or fever 09/07/21 03:15 09/07/21 19:18 Amlodipine Besylate (Norvasc) 5 mg DAILY PO 09/07/21 09:00 09/09/21 08:40 Baclofen (Lioresal) 10 mg DAILY PO 09/07/21 09:00 09/09/21 08:39 EZETIMIBE (Zetia) 10 mg DAILY PO 09/07/21 09:00 09/09/21 08:40 Gabapentin (Neurontin) 600 mg BID PO 09/07/21 09:00 09/09/21 08:39 Lisinopril (Prinivil) 20 mg DAILY PO 09/07/21 09:00 09/09/21 08:38 Loperamide HCl (Immodium Oral Susp) 2 mg PRN Q6HRS PRN PO DIARRHEA 09/07/21 03:15 Metformin HCl (Glucophage) 500 mg BIDWMEALS PO 09/07/21 08:00 09/09/21 08:39 Trazodone HCl (Desyrel) 50 mg QHS PO 09/07/21 21:00 09/08/21 22:10 Diltiazem HCl (Cardizem 24hr Cd) 120 mg DAILY PO 09/07/21 09:00 09/09/21 08:39 Citalopram Hydrobromide (CeleXA) 20 mg DAILY PO 09/07/21 09:00 09/09/21 08:39 Levetiracetam (Keppra) 1,000 mg BID PO 09/07/21 09:00 09/09/21 08:39 Melatonin (Melatonin) 1.5 mg QHS PO 09/07/21 21:00 09/08/21 22:09 Pantoprazole Sodium (Protonix) 40 mg DAILYAC PO 09/07/21 07:30 09/09/21 08:38 Ondansetron HCl (Zofran Odt) 8 mg PRN Q8HRS PRN PO NAUSEA/VOMITING 09/07/21 04:30 09/07/21 04:30 DC Topiramate (Topamax) 50 mg BID PO 09/07/21 09:00 09/09/21 08:39 Ondansetron HCl (Zofran Odt) 8 mg PRN Q4HRS PRN PO NAUSEA/VOMITING 09/07/21 04:45 Lactobacillus Rhamnosus (Culturelle) 1 cap BID PO 09/07/21 09:00 09/09/21 08:39 Primidone (Mysoline) 50 mg BID PO 09/07/21 21:00 09/08/21 13:16 DC 09/08/21 08:23 Primidone (Mysoline) 50 mg QHS PO 09/08/21 21:00 09/08/21 22:11 Current Medications Medications (Trade) Dose Ordered Sig/Kristen Route PRN Reason Start Time Stop Time Status Last Admin Dose Admin Primidone (Mysoline) 50 mg QHS PO 09/08/21 21:00 09/08/21 22:11 I have reviewed the current psychotropics carefully including drug interactions. Risk benefit ratio favors no change other than as noted in my dictated progress note. Diagnosis: Problems: (1) Major depressive disorder, severe (2) Mild cognitive impairment (3) Anxiety disorder, unspecified NICOLASA BRICENO MD Sep 09, 2021 09:00
--- NOTE | 2021-09-09 09:41 | NUR ---
PT ABLE TO TAKE MEDICATIONS CRUSHED IN APPLESAUCE THIS MORNING. AFTER FEEDING PT APPLESAUCE AND EGGS, AND ORANGE JUICE, PT BEGAN TO COUGH. PT UNABLE TO SWALLOW EGGS. PT LESS SEDATED THAN YESTERDAY, BUT STILL HARD TO AROUSE.
--- NOTE | 2021-09-09 10:31 | PN ---
DATE: 09/09/2021 SUBJECTIVE: The patient denies any new medical or neurological complaints, but he seems to be weak and fatigued. He denies headaches, visual disturbances, chest pain or shortness of breath. OBJECTIVE: GENERAL: Well-developed, well-nourished male, in no acute distress. VITAL SIGNS: Stable. Blood pressure 114/75, respiratory rate 18, pulse is 89 and regular, oxygen saturation is 91% on 3 liters by nasal cannula and temperature is 98.1. HEENT: Normocephalic, status post right frontal craniotomy to resect a brain tumor, which was reported as malignant. NECK: Supple, negative for carotid bruit, lymphadenopathy or thyromegaly. LUNGS: No rales or wheezing. CARDIOVASCULAR: Regular rate and rhythm, normal S1, S2. ABDOMEN: Soft. EXTREMITIES: Negative for cyanosis, clubbing or edema. NEUROLOGIC: Mental status: The patient is more alert, follows one-step commands, answers simple questions. Cranial nerves are grossly intact. No focal motor or sensory deficit. The strength is 4/5 throughout. The patient has mild postural and kinetic tremors of the arms bilaterally. Sensory examination revealed diminished pinprick and light touch senses in patchy distributions in distal lower extremities. Deep tendon reflexes were symmetric and hypoactive with absent Achilles responses. Gait not tested. IMPRESSION: 1. Resting and postural and kinetic tremors - improved by medication - primidone. 2. Left lobe pneumonia. 3. Multiple medical problems include hypertension, hyperlipidemia, diabetes mellitus, major depression and anxiety disorders with chronic low back pain. RECOMMENDATIONS: 1. We will continue with current medical and psychiatric care. 2. Physical therapy evaluation. CARMELO/AFUA DR: Ivan TID: [id number]
[2021-09-09 10:55] VITALS: BP 113/68
[2021-09-09] MEDS: POTASSIUM CL 40MEQ IN 0.9%NACL 1,000 ML IV SCH (11:10)
--- NOTE | 2021-09-09 14:41 | RAD ---
CT HEAD/BRAIN WO Clinical indications: Reason: PATIENT HAS BECOME MORE UNRESPONSIVE THRU OUT THE DAY / Spl. Instructio ns: HX BRAIN CANCER/SURGER - UNKNOWN TO IF HE HAS HX OF STROKE / History: COMPARISON: July 24, 2021. Technique: Noncontrast axial cross sectional scanning of the head was performed. PQRS compliance Statement One or more of the following individualized dose reduction techniques were utilized for this study: 1. Automated exposure control 2. Adjustment of the mA and/or kV according to patient size 3. Use of iterative reconstruction technique Findings: There is a small hyperdense acute extra-axial hematoma in the upper right frontal region me asuring 4 mm in thickness. An acute subdural hematoma was seen here previously and this appears simil ar. This is deep to the craniotomy flap of the right frontal area. Deep to the flap is a chronic area of encephalomalacia and cerebral edema of the right frontal lobe which is unchanged in size since prior study. Previously seen midline shift from right to left of 8 mm is unchanged. There is partia l effacement of the anterior aspect of the right lateral ventricle which is unchanged. No pneumocepha atiya is seen. No opacification of the mastoid sinuses or the middle ear cavities or the paranasal sinu ses is seen. The maxillary sinuses are not seen in this study. There is mild medial periorbital soft tissue swelling superior to the left orbit. This is unchanged. IMPRESSION: Hyperdense extra-axial hematoma measuring 4 mm in thickness in the right frontal region d eep to the craniotomy flap. Hyperdensity within it may be seen with acute hemorrhage but this is unch anged from the prior study July 24, 2021 indicative of at least a subacute hematoma with a possi ble acute component. Thickness is only 4 mm which is unchanged. Right frontal encephalomalacia and cerebral edema with mass effect and midline shift as discussed abo ve which is unchanged from July 24, 2021. No new abnormality. Electronically signed by: Anil Padron MD (09/09/2021 2:38 PM) [id number]
[2021-09-09] MEDS ORDERED: DEXAMETHASONE SOD PHOS 10 MG/ML VIAL. IV ONE (15:00)
--- NOTE | 2021-09-09 15:07 | NUR ---
DR. CHARLES SPOKE WITH [facility] NURSE TO FIND OUT PT BASELINE. THAT NURSE STATED PT IS PRIMARILY INDEPENDENT AND USES A WHEELCHAIR TO GET AROUND. DR. CHARLES ORDERED A ONE TIME DOSE OF DEXAMETHASONE. HE WANTS TO HOLD ALL MEDICATIONS THAT CAN SEDATE PT SUCH GABAPENTIN, MELATONIN, TRAZODONE, PRIMIDONE, ETC. HE CHANGED KEPPRA TO IV ROUTE. CONTINUE WITH ANTIBIOTICS. SPEECH THERAPY TO COME ASSESS PT TOMORROW, BUT FOR NOW PT IS NPO. PT ON 3L NASAL CANNULA. PT ABLE TO TELL THIS RN HIS NAME THIS MORNING AND THAT HE NEEDED TO GO TO THE RESTROOM.
[2021-09-09 15:12] VITALS: BP 133/78
[2021-09-09] MEDS: DEXAMETHASONE SOD PHOS 4 MG/ML VIAL. IVP SCH (18:26)
[2021-09-09 19:00] VITALS: BP 124/69
[2021-09-09] MEDS: MELATONIN 3 MG TABLET PO SCH (21:00)
[2021-09-09] MEDS: traZODone 50 MG TABLET. PO SCH (21:00)
[2021-09-09] MEDS: PRIMIDONE 50 MG TABLET PO SCH (21:00)
[2021-09-09] MEDS: INSULIN GLARGINE SYRINGE. SQ SCH (21:38)
[2021-09-09 23:00] VITALS: BP 111/69
[2021-09-10] MEDS: DEXAMETHASONE SOD PHOS 4 MG/ML VIAL. IVP SCH ×3 (00:01→10:52)
--- NOTE | 2021-09-10 02:35 | PN ---
DATE: 09/09/2021 SUBJECTIVE: The patient is resting, slightly propped up in bed, extremely lethargic. He does open his eyes to painful stimuli. The patient was able this morning to have his medication, but after that, he became extremely lethargic, and we did keep him n.p.o. and started to continue with IV fluid. I did switch him to IV Keppra and also started him on dexamethasone 10 mg. Apparently, he is known to have glioblastoma multiforme, operated on at [facility], and the neurosurgeon is Dr. Moises Johnston. His radiation oncologist is Dr. Conde and his oncologist, Dr. Hodges. I left the message with Dr. Conde at [phone], and so far, I have not received any call from him. I did a CT scan of the head, which showed that the patient has hyperdense extraaxial hematoma measuring 4 mm in thickness in the right frontal region, deep to the craniotomy flap; hyperdensity within it may be seen with acute hemorrhage, but this is unchanged from the prior study on 07/24/2021, indicative of at least subacute hematoma with a possible acute component, thickness is only 4 mm, which is unchanged. The patient continued to have right frontal encephalomalacia and cerebral edema with mass effect and midline shift as discussed above, which is unchanged from 07/24/2021 and apparently, no new abnormality. The patient was seen by Dr. Stokes, the neurologist, and he was started on primidone. He is also on multiple other medications including trazodone, gabapentin, and baclofen, might be contributing to his impaired or altered mental status. I actually kept him n.p.o. today and overnight tonight. PHYSICAL EXAMINATION: GENERAL: When I saw him this afternoon, he was resting, slightly propped up in bed, in no apparent respiratory distress. There was no pallor, jaundice, cyanosis, or thyromegaly. No jugular venous distention. No limb edema. VITAL SIGNS: His heart rate was 85, blood pressure was 133/78, temperature was 98.7, respiratory rate was 18, and oxygen saturation was 92% on 3 liters of oxygen. HEAD, EYES, EARS, NOSE, AND THROAT: Normocephalic and atraumatic. NECK: Supple. HEART: Showed normal first and second heart sounds. No gallop, rub, or murmur. CHEST: Clear to auscultation. No crepitation or rhonchi. ABDOMEN: Distended, soft, and nontender. NEUROLOGIC: He was very extremely lethargic. He does open his eyes to painful stimuli. His intake and output over the last 24 hours include 2500. No output was recorded. LABORATORY DATA: This morning showed a serum sodium of 132, potassium 4.3, chloride 101, bicarbonate 24, anion gap of 7, BUN 10, and creatinine 0.9. Estimated GFR was 83 mL per minute. His glucose 145, and calcium was 8.4. Total bilirubin, AST, ALT, and alkaline phosphatase were normal. Total protein 6.8 and albumin 2.5. White cell count 7800, hemoglobin 12.8, hematocrit 37, MCV 89, and platelet count of 117,000. ASSESSMENT: 1. Altered mental status, likely multifactorial. CT scan showed no new changes; however, he is now on primidone that we held. He is also on multiple medications that might make him heavily sedated. 2. Acute hypoxic respiratory failure, now on 3 liters of oxygen. 3. Healthcare-associated pneumonia, for which he is on IV antibiotic. 4. The patient has multiple medical problems including: A. Type 2 diabetes mellitus, seems to be reasonably controlled. B. Major depressive disorder, recurrent. C. Unchanged anxiety disorder. D. Seizure disorder, for which he is on Keppra. F. Essential primary hypertension. G. Gastroesophageal reflux disease. H. Malignant neoplasm of the right frontal lobe, likely glioblastoma multiforme, status post resection. I. Benign essential tremors, for which he is on primidone that makes him heavily sedated. PLAN: Is to continue with IV fluid and IV antibiotics. I switched his Keppra to be given IV. I have added dexamethasone and consulted the oncologist. I have not received any call back from the oncologist, he had to decide on further management. REILLY/DUSTY/ROSA DR: REILLY/baljit TID: [id number]
[2021-09-10] MEDS: POTASSIUM CL 40MEQ IN 0.9%NACL 1,000 ML IV SCH (03:42)
[2021-09-10 05:37] VITALS: BP 118/72
[2021-09-10] MEDS: PANTOPRAZOLE 40 MG TABLET. PO SCH (07:30)
[2021-09-10] MEDS: INSULIN LISPRO 300 UNITS/3 ML VIAL. SQ SCH ×2 (08:00→12:05)
[2021-09-10] MEDS: metFORMIN 500 MG TABLET PO SCH (08:00)
--- NOTE | 2021-09-10 09:56 | PN ---
SUBJECTIVE: The patient denies any new medical or neurological complaints. Otherwise, he feels much better. His tremor has been improved. OBJECTIVE: GENERAL: Well-developed, well-nourished male, not in acute distress. VITAL SIGNS: Blood pressure 118/72, respiratory rate 18, pulse is 85 and regular, oxygen saturation is 93% on 3 liters per nasal cannula and temperature is 97.6. HEENT: Normocephalic, atraumatic, otherwise unremarkable. NECK: Supple, negative for carotid bruit, lymphadenopathy or thyromegaly. LUNGS: Clear to A and P. CARDIOVASCULAR: Regular rate and rhythm, normal S1, S2. There is no S3, S4 or murmur. ABDOMEN: Soft. Bowel sounds positive. EXTREMITIES: Negative for cyanosis, clubbing or edema. NEUROLOGIC: Mental status: The patient is alert and oriented x 2. The speech is more fluent. There is no language dysfunction. Cranial nerves are intact. No focal motor or sensory deficit. The strength is 4/5 throughout. The patient has very mild postural and kinetic tremors, more prominent on the right side. The tone is normal. Sensory examination revealed diminished pinprick and light touch senses in patchy distributions in both distal lower extremities. Deep tendon reflexes were symmetric with absent Achilles responses. Gait not tested. IMPRESSION: 1. Mild postural and kinetic tremor - improved, more prominent on the right side. 2. Left lobe pneumonia. 3. Multiple medical problems include hypertension, hyperlipidemia, diabetes mellitus, major depression and anxiety disorders, chronic low back pain. 4. Status post resection of a malignant right frontal region. RECOMMENDATIONS: 1. Continue with current management initiated and current medical and psychiatric care. 2. Continue with physical therapy as tolerated. CARMELO/LULY DR: Ivan TID: [id number]
[2021-09-10] MEDS: TOPIRAMATE 25 MG TABLET. PO SCH (10:50)
[2021-09-10] MEDS: LISINOPRIL 20 MG TABLET PO SCH (10:51)
[2021-09-10] MEDS: LACTOBACILLUS RHAMNOSUS GG 1 CAPSULE. PO SCH (10:51)
[2021-09-10] MEDS: amLODIPine BESYLATE 5 MG TABLET PO SCH (10:51)
[2021-09-10] MEDS: AZITHROMYCIN 250 MG TABLET. PO SCH (10:51)
[2021-09-10] MEDS: BACLOFEN 10 MG TABLET PO SCH (10:52)
[2021-09-10] MEDS: GABAPENTIN 300 MG CAPSULE. PO SCH (10:52)
[2021-09-10] MEDS: EZETIMIBE 10 MG TABLET PO SCH (10:52)
[2021-09-10] MEDS: CITALOPRAM 20 MG TABLET. PO SCH (10:52)
--- NOTE | 2021-09-10 11:29 | PN ---
DATE: 09/10/2021 SUBJECTIVE: The patient is sitting in his chair, definitely more awake, alert, able to talk. He is maintaining his oxygen saturation at 97% on room air. He is hungry and would like to eat. PHYSICAL EXAMINATION: GENERAL: When I examined him, he looked somewhat pale, not jaundiced, cyanosed. No lymphadenopathy, no thyromegaly, no jugular venous distention. No lower limb edema. VITAL SIGNS: His heart rate was 85, blood pressure was 118/72, temperature was 97.6, respiratory rate was 18 and oxygen saturation was 93% on 3 liters of oxygen. HEAD, EYES, EARS, NOSE, AND THROAT: Normocephalic, atraumatic. NECK: Supple. HEART: Showed normal first and second heart sounds, no gallop, rub or murmur. CHEST: Clear to auscultation, no crepitation or rhonchi. ABDOMEN: Distended, soft, nontender. NEUROLOGIC: He was definitely more awake, alert. All his cranial nerves seem to be grossly intact. He moves extremities, although he is mostly bedbound, chair bound. His intake over the last 24 hours was 1400, no output was recorded. LABORATORY DATA: He has no lab work done this morning. ASSESSMENT: 1. Altered mental status, likely multifactorial. CT scan showed no new changes. However, he was on primidone that we held. He is also on multiple medications that might make him heavily sedated. 2. Acute hypoxic respiratory failure, now on room air. 3. Healthcare-associated pneumonia, for which he is on intravenous antibiotic. 4. The patient has multiple medical problems including: A. Type 2 diabetes mellitus, seems to be reasonably controlled. B. Major depressive disorder, recurrent C. Unchanged anxiety disorder. D. Seizure disorder, for which he is on Keppra. E. Essential primary hypertension. F. Gastroesophageal reflux disease. G. Glioblastoma multiforme involving his right frontal lobe, status post surgical resection, but overall poor prognosis according to Dr. Conde, his oncologist. H. Benign essential tremors, for which he was started on primidone, it makes him heavily sedated. PLAN: My plan is to continue with IV fluid. Continue IV antibiotic. We will start to feed him back and start him also on his dexamethasone. I will repeat all his labs again today. I will contact Dr. Conde again and see whether transferring him to [facility] is necessary or whether we should discuss the option of hospice or end-of-life care. ELI DR: Sade TID: [id number]
[2021-09-10 11:40] VITALS: BP 119/78
== END 2021-09-10 13:55 | disposition short-term general hospital (02) | DRG 177 ==
LOC: ER 10:55 → 1 SOUTH 12:54
PROVIDERS: ADMIT Internal Medicine; ATTEND Internal Medicine
DX: J15.6 Pneumonia due to other Gram-negative bacteria (principal); J96.01 Acute respiratory failure with hypoxia; C71.1 Malignant neoplasm of frontal lobe; J15.9 Unspecified bacterial pneumonia; E11.9 Type 2 diabetes mellitus without complications; E78.5 Hyperlipidemia, unspecified; F32.9 Major depressive disorder, single episode, unspecified; F41.9 Anxiety disorder, unspecified; G25.0 Essential tremor; G31.84 Mild cognitive impairment of uncertain or unknown etiology; G40.909 Epilepsy, unspecified, not intractable, without status epilepticus; G60.9 Hereditary and idiopathic neuropathy, unspecified; G89.29 Other chronic pain; I10 Essential (primary) hypertension; K21.9 Gastro-esophageal reflux disease without esophagitis; M48.00 Spinal stenosis, site unspecified; Z20.822 Contact with and (suspected) exposure to COVID-19; Z79.4 Long term (current) use of insulin; Z85.841 Personal history of malignant neoplasm of brain; Z90.49 Acquired absence of other specified parts of digestive tract; Z88.6 Allergy status to analgesic agent
CPT/HCPCS: 36415; 70450; 71045; 80053; 81001; 82947; 83605; 84484; 85025; 85027; 87040; 87426; 87493; 87804; 93005; 96361; 96374; 96375; J0456; J0696; J1100; J1815; J1953; J7050; U0003; 97530; 99285-25; J7030